=== PATIENT | female | born 1985 | race Two or more races ===

== ENCOUNTER 2018-06-27 15:17 | Inpatient (IN) | payer BC ==
[2018-06-27 15:49] LABS: ADD MAN DIFF? NO
[2018-06-27 15:55] LABS: BASOPHILS % 0.3 % (0.0-2.0); EOSINOPHILS # 0.1 10^3/ul (0.0-0.5); EOSINOPHILS % 1.3 % (0.0-7.0); HEMATOCRIT 35.9 % (37.0-47.0); HEMOGLOBIN 11.5 g/dl (12.0-16.0); LYMPHOCYTES # 1.2 10^3/ul (0.8-2.9); LYMPHOCYTES % 16.9 % (15.0-51.0); MEAN CORPUSCULAR VOLUME 90.7 fl (82.0-101.0); MONOCYTE # 0.5 10^3/ul (0.3-0.9); MONOCYTES % 6.5 % (0.0-11.0); NEUTROPHIL # 5.3 10^3/ul (1.6-7.5); NEUTROPHILS % 74.7 % (39.0-77.0); PLATELET COUNT 212 10^3/UL (140-415); RED BLOOD COUNT 3.96 10^6/ul (4.20-5.40); RED CELL DISTRIBUTION WIDTH 12.9 % (11.5-14.5)
[2018-06-27 16:13] LABS: ALANINE AMINOTRANSFERASE 23 IU/L (13-69); ALBUMIN 3.2 g/dl (3.3-4.9); ALKALINE PHOSPHATASE 139 IU/L (42-121); ANION GAP 9 (5-13); ASPARTATE AMINO TRANSFERASE 25 IU/L (15-46); BILIRUBIN,INDIRECT 0.2 mg/dl (0-1.1); BILIRUBIN,TOTAL 0.2 mg/dl (0.2-1.3); BLOOD UREA NITROGEN 9 mg/dl (7-20); CALCIUM 8.4 mg/dl (8.4-10.2); CARBON DIOXIDE 23 mmol/L (21-31); CHLORIDE 108 mmol/L (97-110); Estimated GFR > 60 mL/min (>60); GLUCOSE 125 mg/dl (70-220); POTASSIUM 3.9 mmol/L (3.5-5.1); SODIUM 140 mmol/L (135-144); TOTAL PROTEIN 6.4 g/dl (6.1-8.1); URIC ACID 4.7 mg/dl (3.1-7.9)
[2018-06-27 16:19] LABS: ADD UMIC YES; UR ASCORBIC ACID NEGATIVE (NEGATIVE); UR BACTERIA FEW /HPF (NONE SEEN); UR BILIRUBIN (Dip) NEGATIVE (NEGATIVE); UR BLOOD (Dip) NEGATIVE (NEGATIVE); UR CLARITY SLIGHTLY CLOUDY (CLEAR); UR COLOR YELLOW (YELLOW); UR GLUCOSE (Dip) NEGATIVE (NEGATIVE); UR KETONES (Dip) TRACE mg/dL (NEGATIVE); UR LEUKOCYTE ESTERASE (Dip) NEGATIVE Leu/ul (NEGATIVE); UR MUCUS FEW /HPF (NONE SEEN); UR NITRITE (Dip) NEGATIVE (NEGATIVE); UR RBC 2 /HPF (0-5); UR SPECIFIC GRAVITY (Dip) 1.025 (1.003-1.030); UR SQUAMOUS EPITHELIAL CELL MODERATE /HPF (FEW); UR TOTAL PROTEIN (Dip) 1+ mg/dl (NEGATIVE); UR UROBILINOGEN (Dip) NEGATIVE (NEGATIVE); UR WBC 3 /HPF (0-5)
[2018-06-27] MEDS: LACTATED RINGER'S 1,000 ML IV (18:26)
[2018-06-27] MEDS: MAGNESIUM SULFATE 4 GM/100 ML 100 ML IV (18:27)
[2018-06-27 18:51] LABS: MAGNESIUM 1.8 mg/dl (1.7-2.5)
[2018-06-27] MEDS: MAGNESIUM SULFATE 20 GM/500 ML 500 ML IV (18:53)
[2018-06-27] MEDS: BETAMET NA PHOS/AC(6 MG/ML) 2 ML INJ SYG IM (20:47)
[2018-06-28 01:30] LABS: MAGNESIUM 4.3 mg/dl (1.7-2.5)
[2018-06-28] MEDS: LACTATED RINGER'S 1,000 ML IV ×2 (04:58→13:03)
[2018-06-28] MEDS: MAGNESIUM SULFATE 20 GM/500 ML 500 ML IV (05:02)
[2018-06-28 06:53] LABS: MAGNESIUM 4.6 mg/dl (1.7-2.5)
[2018-06-28] MEDS ORDERED: GLUCAGON 1 MG INJ IM (08:30)
[2018-06-28] MEDS ORDERED: DEXTROSE 50% 50 ML SYRINGE IV ×2 (08:30)
[2018-06-28] MEDS ORDERED: GLUCOSE GEL 15 GRAM TUBE PO ×2 (08:30)
[2018-06-28] MEDS ORDERED: GLUCOSE GEL 15 GRAM TUBE BUCCAL (08:30)
[2018-06-28] MEDS: FERROUS SULFATE (EC) 325 MG TAB PO (08:46)
[2018-06-28] MEDS: PRENATAL VITAMIN PO (08:47)
[2018-06-28 12:47] LABS: MAGNESIUM 5.1 mg/dl (1.7-2.5)
[2018-06-28] MEDS ORDERED: ACETAMINOPHEN 325 MG TAB PO (16:30)
[2018-06-28 19:03] LABS: COLLECTION PERIOD 24 hrs
[2018-06-28 19:37] LABS: MAGNESIUM 3.1 mg/dl (1.7-2.5)
[2018-06-28 19:53] LABS: CREATININE,URINE RANDOM 37.55 mg/dl (20-320)
[2018-06-28 19:58] LABS: COLLECTION PERIOD 24 hrs; CREATININE CLEARANCE 206.4 mls/min (84.0-162.0); VOLUME 4750 ml/24hrs; VOLUME 4750 mls
[2018-06-28] MEDS: BETAMET NA PHOS/AC(6 MG/ML) 2 ML INJ SYG IM (20:34)
[2018-06-28] MEDS: metFORMIN 500 MG TAB PO (21:24)
[2018-06-29] MEDS: LACTATED RINGER'S 1,000 ML IV (01:52)
[2018-06-29] MEDS: metFORMIN 500 MG TAB PO (08:48)
[2018-06-29] MEDS: PRENATAL VITAMIN PO (09:25)
[2018-06-29] MEDS: FERROUS SULFATE (EC) 325 MG TAB PO (09:25)
== END 2018-06-29 12:52 | disposition home or self-care (01) | DRG 833 ==
LOC: OBT 15:17 → PP1 06-28 10:17 → L-D 15:19 → OBT 16:40 → L-D 16:40
DX: O13.3 Gestational [pregnancy-induced] hypertension without significant proteinuria, third trimester (principal); Z3A.29 29 weeks gestation of pregnancy
CPT/HCPCS: 76818; 80053; 81001; 82575; 82962; 83735; 84156; 84560; 85025; 87086

== ENCOUNTER 2018-07-29 12:18 | Inpatient (IN) | payer BC ==
[2018-07-29 13:17] LABS: ADD MAN DIFF? NO
[2018-07-29 13:20] LABS: WHITE BLOOD COUNT 5.6 10^3/ul (4.8-10.8)
[2018-07-29 13:20] LABS: BASOPHILS % 0.5 % (0.0-2.0); EOSINOPHILS # 0.1 10^3/ul (0.0-0.5); EOSINOPHILS % 1.4 % (0.0-7.0); HEMATOCRIT 37.9 % (37.0-47.0); HEMOGLOBIN 12.2 g/dl (12.0-16.0); LYMPHOCYTES # 1.5 10^3/ul (0.8-2.9); LYMPHOCYTES % 27.4 % (15.0-51.0); MEAN CORPUSCULAR HEMOGLOBIN 28.8 pg (29.0-33.0); MEAN CORPUSCULAR HGB CONC 32.2 g/dl (32.0-37.0); MEAN CORPUSCULAR VOLUME 89.4 fl (82.0-101.0); MEAN PLATELET VOLUME 11.1 fl (7.4-10.4); MONOCYTE # 0.5 10^3/ul (0.3-0.9); MONOCYTES % 8.1 % (0.0-11.0); NEUTROPHIL # 3.5 10^3/ul (1.6-7.5); NEUTROPHILS % 62.1 % (39.0-77.0); PLATELET COUNT 203 10^3/UL (140-415); RED BLOOD COUNT 4.24 10^6/ul (4.20-5.40); RED CELL DISTRIBUTION WIDTH 13.1 % (11.5-14.5)
[2018-07-29 13:36] LABS: ADD UMIC YES; UR ASCORBIC ACID NEGATIVE (NEGATIVE); UR BACTERIA FEW /HPF (NONE SEEN); UR BILIRUBIN (Dip) NEGATIVE (NEGATIVE); UR BLOOD (Dip) 1+ mg/dL (NEGATIVE); UR BUDDING YEAST FEW /HPF (NONE SEEN); UR CLARITY CLOUDY (CLEAR); UR COLOR YELLOW (YELLOW); UR GLUCOSE (Dip) NEGATIVE (NEGATIVE); UR KETONES (Dip) NEGATIVE (NEGATIVE); UR LEUKOCYTE ESTERASE (Dip) NEGATIVE Leu/ul (NEGATIVE); UR NITRITE (Dip) NEGATIVE (NEGATIVE); UR RBC 2 /HPF (0-5); UR SPECIFIC GRAVITY (Dip) 1.016 (1.003-1.030); UR SQUAMOUS EPITHELIAL CELL FEW /HPF (FEW); UR TOTAL PROTEIN (Dip) 3+ mg/dl (NEGATIVE); UR UROBILINOGEN (Dip) NEGATIVE (NEGATIVE); UR WBC 7 /HPF (0-5)
[2018-07-29 13:37] LABS: ALANINE AMINOTRANSFERASE 119 IU/L (13-69); ALBUMIN 2.8 g/dl (3.3-4.9); ALBUMIN/GLOBULIN RATIO 0.84; ALKALINE PHOSPHATASE 243 IU/L (42-121); ANION GAP 4 (5-13); ASPARTATE AMINO TRANSFERASE 60 IU/L (15-46); BILIRUBIN,INDIRECT 0.1 mg/dl (0-1.1); BILIRUBIN,TOTAL 0.1 mg/dl (0.2-1.3); BLOOD UREA NITROGEN 12 mg/dl (7-20); CALCIUM 8.6 mg/dl (8.4-10.2); CARBON DIOXIDE 26 mmol/L (21-31); CHLORIDE 109 mmol/L (97-110); CREATININE 0.86 mg/dl (0.44-1.00); Estimated GFR > 60 mL/min (>60); GLUCOSE 98 mg/dl (70-220); POTASSIUM 4.6 mmol/L (3.5-5.1); SODIUM 139 mmol/L (135-144); TOTAL PROTEIN 6.1 g/dl (6.1-8.1); URIC ACID 6.7 mg/dl (3.1-7.9)
[2018-07-29 13:39] LABS: INR 0.83; PROTIME 11.5 Sec (11.9-14.9); PT RATIO 0.9
[2018-07-29 13:40] LABS: PARTIAL THROMBOPLASTIN TIME 30.4 Sec (23.0-35.0)
[2018-07-29] MEDS: BETAMET NA PHOS/AC(6 MG/ML) 2 ML INJ SYG IM (18:42)
[2018-07-29] MEDS: ACCU-CHEK XX (20:49)
[2018-07-30] MEDS: ACCU-CHEK XX ×4 (08:00→20:01)
[2018-07-30 08:19] LABS: ADD MAN DIFF? NO
[2018-07-30 08:24] LABS: BASOPHILS % 0.1 % (0.0-2.0); HEMATOCRIT 39.8 % (37.0-47.0); HEMOGLOBIN 12.6 g/dl (12.0-16.0); LYMPHOCYTES # 1.1 10^3/ul (0.8-2.9); LYMPHOCYTES % 15.2 % (15.0-51.0); MEAN CORPUSCULAR HEMOGLOBIN 28.4 pg (29.0-33.0); MEAN CORPUSCULAR HGB CONC 31.7 g/dl (32.0-37.0); MEAN CORPUSCULAR VOLUME 89.6 fl (82.0-101.0); MEAN PLATELET VOLUME 11.4 fl (7.4-10.4); MONOCYTE # 0.2 10^3/ul (0.3-0.9); MONOCYTES % 3.3 % (0.0-11.0); NEUTROPHIL # 5.9 10^3/ul (1.6-7.5); NEUTROPHILS % 80.8 % (39.0-77.0); PLATELET COUNT 215 10^3/UL (140-415); RED BLOOD COUNT 4.44 10^6/ul (4.20-5.40); RED CELL DISTRIBUTION WIDTH 12.9 % (11.5-14.5)
[2018-07-30 08:24] LABS: WHITE BLOOD COUNT 7.3 10^3/ul (4.8-10.8)
[2018-07-30 08:50] LABS: ALANINE AMINOTRANSFERASE 131 IU/L (13-69); ALBUMIN 2.9 g/dl (3.3-4.9); ALBUMIN/GLOBULIN RATIO 0.93; ALKALINE PHOSPHATASE 253 IU/L (42-121); ANION GAP 10 (5-13); ASPARTATE AMINO TRANSFERASE 69 IU/L (15-46); BLOOD UREA NITROGEN 15 mg/dl (7-20); CALCIUM 8.9 mg/dl (8.4-10.2); CARBON DIOXIDE 22 mmol/L (21-31); CHLORIDE 107 mmol/L (97-110); CREATININE 0.89 mg/dl (0.44-1.00); Estimated GFR > 60 mL/min (>60); GLUCOSE 115 mg/dl (70-220); POTASSIUM 4.4 mmol/L (3.5-5.1); SODIUM 139 mmol/L (135-144)
[2018-07-30] MEDS: PRENATAL VITAMIN PO (10:28)
[2018-07-30 17:18] LABS: COLLECTION PERIOD 24 hrs
[2018-07-30] MEDS ORDERED: ACETAMINOPHEN 325 MG TAB PO (18:00)
[2018-07-30 18:24] LABS: COLLECTION PERIOD 24 hrs; SCRET 0.89 mg/dl (0.44-1.00); VOLUME 1200 ml/24hrs
[2018-07-30 18:25] LABS: CREATININE CLEARANCE 123.1 mls/min (84.0-162.0)
[2018-07-30 19:23] LABS: ADD MAN DIFF? NO
[2018-07-30 19:25] LABS: VOLUME 1200 mls
[2018-07-30 19:27] LABS: BASOPHILS % 0.1 % (0.0-2.0); HEMATOCRIT 36.2 % (37.0-47.0); HEMOGLOBIN 11.7 g/dl (12.0-16.0); LYMPHOCYTES # 1.3 10^3/ul (0.8-2.9); LYMPHOCYTES % 15.9 % (15.0-51.0); MEAN CORPUSCULAR HEMOGLOBIN 28.6 pg (29.0-33.0); MEAN CORPUSCULAR HGB CONC 32.3 g/dl (32.0-37.0); MEAN CORPUSCULAR VOLUME 88.5 fl (82.0-101.0); MEAN PLATELET VOLUME 11.3 fl (7.4-10.4); MONOCYTE # 0.5 10^3/ul (0.3-0.9); MONOCYTES % 5.6 % (0.0-11.0); NEUTROPHIL # 6.4 10^3/ul (1.6-7.5); NEUTROPHILS % 77.7 % (39.0-77.0); PLATELET COUNT 236 10^3/UL (140-415); RED BLOOD COUNT 4.09 10^6/ul (4.20-5.40); RED CELL DISTRIBUTION WIDTH 13.2 % (11.5-14.5)
[2018-07-30 19:27] LABS: WHITE BLOOD COUNT 8.2 10^3/ul (4.8-10.8)
[2018-07-30 19:42] LABS: ALANINE AMINOTRANSFERASE 182 IU/L (13-69); ALBUMIN 2.8 g/dl (3.3-4.9); ALKALINE PHOSPHATASE 250 IU/L (42-121); ANION GAP 8 (5-13); ASPARTATE AMINO TRANSFERASE 108 IU/L (15-46); BILIRUBIN,INDIRECT 0.1 mg/dl (0-1.1); BILIRUBIN,TOTAL 0.1 mg/dl (0.2-1.3); BLOOD UREA NITROGEN 17 mg/dl (7-20); CALCIUM 8.6 mg/dl (8.4-10.2); CARBON DIOXIDE 23 mmol/L (21-31); CHLORIDE 108 mmol/L (97-110); CREATININE 0.97 mg/dl (0.44-1.00); Estimated GFR > 60 mL/min (>60); GLUCOSE 131 mg/dl (70-220); POTASSIUM 4.1 mmol/L (3.5-5.1); SODIUM 139 mmol/L (135-144); TOTAL PROTEIN 5.9 g/dl (6.1-8.1)
[2018-07-30] MEDS: BETAMET NA PHOS/AC(6 MG/ML) 2 ML INJ SYG IM (19:48)
[2018-07-30] MEDS: LACTATED RINGER'S 500 ML IV (19:58)
[2018-07-30] MEDS: MAGNESIUM SULFATE 20 GM/500 ML 500 ML IV (20:00)
[2018-07-31] MEDS: MAGNESIUM SULFATE 20 GM/500 ML 500 ML IV ×2 (05:50→17:49)
[2018-07-31] MEDS ORDERED: PHENYLephrine (100 MCG/ML) 10ML SYG (07:00)
[2018-07-31] MEDS ORDERED: EPHEDrine SULFATE 50 MG/5 ML SYG (07:00)
[2018-07-31] MEDS: ACCU-CHEK XX ×2 (07:25→21:15)
[2018-07-31 07:29] LABS: MAGNESIUM 5.6 mg/dl (1.7-2.5)
[2018-07-31] MEDS: LACTATED RINGER'S 500 ML IV ×2 (07:45→08:50)
[2018-07-31] MEDS: PRENATAL VITAMIN PO (09:00)
[2018-07-31] MEDS ORDERED: CITRIC ACID/NA CITRATE 30 ML CUP (09:55)
[2018-07-31] MEDS: CITRIC ACID/NA CITRATE 30 ML CUP PO ×2 (09:56→10:00)
[2018-07-31] MEDS ORDERED: CEFAZOLIN 3 GM in DEXTROSE 5% 100 ML IV (10:00)
[2018-07-31] MEDS ORDERED: CARBOPROST 250 MCG INJ IM ×2 (10:00→15:30)
[2018-07-31] MEDS ORDERED: OXYTOCIN 30 UNITS/LR 500 ML IV ×3 (10:00→15:30)
[2018-07-31] MEDS ORDERED: MISOPROSTOL 200 MCG TAB PR ×2 (10:00→15:30)
[2018-07-31] MEDS ORDERED: METHYLERGONOVINE 0.2 MG INJ IM ×2 (10:00→15:30)
[2018-07-31] MEDS ORDERED: ONDANSETRON 4 MG INJ (10:05)
[2018-07-31] MEDS ORDERED: METOCLOPRAMIDE 10 MG INJ (10:05)
[2018-07-31] MEDS ORDERED: morphine SULFATE/PF (10 MG/10 ML) INJ (10:05)
[2018-07-31] MEDS ORDERED: BUPIVACAINE 0.75%/DEXT (SPINAL) 2 ML INJ (10:06)
[2018-07-31] MEDS: OXYTOCIN 30 UNITS/LR 500 ML IVPB (11:46)
[2018-07-31] MEDS ORDERED: morphine (1 MG/ML) 10ML SYRINGE IV ×3 (12:00)
[2018-07-31] MEDS ORDERED: KETOROLAC 30 MG INJ IV (12:00)
[2018-07-31] MEDS ORDERED: ONDANSETRON 4 MG INJ IV ×2 (12:00→12:30)
[2018-07-31] MEDS ORDERED: DIPHENHYDRAMINE 50 MG INJ IV ×2 (12:00→12:30)
[2018-07-31] MEDS: OXYTOCIN 30 UNITS/LR 500 ML IV ×4 (12:08→23:12)
[2018-07-31] MEDS ORDERED: NALOXONE (0.4 MG/ML) INJ IV (12:30)
[2018-07-31] MEDS ORDERED: morphine 2 MG INJ IV ×3 (12:30)
[2018-07-31 13:02] LABS: MAGNESIUM 5.6 mg/dl (1.7-2.5)
[2018-07-31] MEDS ORDERED: HYDROCODONE/APAP (5/325) TAB PO ×2 (15:30)
[2018-07-31] MEDS: LANOLIN HPA 1 PKT TOP (17:38)
[2018-07-31] MEDS: CEFAZOLIN 1 GM/50 ML (PMX) 50 ML IVPB (18:30)
[2018-07-31 19:04] LABS: MAGNESIUM 6.5 mg/dl (1.7-2.5)
[2018-08-01] MEDS: ALBUTEROL HFA 8 GM INHALER INH ×2 (00:20→08:24)
[2018-08-01 01:46] LABS: MAGNESIUM 5.9 mg/dl (1.7-2.5)
[2018-08-01] MEDS: OXYTOCIN 30 UNITS/LR 500 ML IV ×6 (04:07→23:12)
[2018-08-01 07:17] LABS: ADD MAN DIFF? NO
[2018-08-01 07:24] LABS: BASOPHILS % 0.2 % (0.0-2.0); HEMATOCRIT 34.8 % (37.0-47.0); HEMOGLOBIN 11.4 g/dl (12.0-16.0); LYMPHOCYTES # 1.7 10^3/ul (0.8-2.9); LYMPHOCYTES % 17.2 % (15.0-51.0); MEAN CORPUSCULAR HGB CONC 32.8 g/dl (32.0-37.0); MEAN CORPUSCULAR VOLUME 88.5 fl (82.0-101.0); MEAN PLATELET VOLUME 10.8 fl (7.4-10.4); MONOCYTE # 0.7 10^3/ul (0.3-0.9); MONOCYTES % 7.3 % (0.0-11.0); NEUTROPHIL # 7.4 10^3/ul (1.6-7.5); NEUTROPHILS % 74.8 % (39.0-77.0); PLATELET COUNT 210 10^3/UL (140-415); RED BLOOD COUNT 3.93 10^6/ul (4.20-5.40); RED CELL DISTRIBUTION WIDTH 13.3 % (11.5-14.5)
[2018-08-01 07:47] LABS: ALANINE AMINOTRANSFERASE 335 IU/L (13-69); ALBUMIN 2.6 g/dl (3.3-4.9); ALBUMIN/GLOBULIN RATIO 0.86; ALKALINE PHOSPHATASE 212 IU/L (42-121); ANION GAP 3 (5-13); ASPARTATE AMINO TRANSFERASE 204 IU/L (15-46); BLOOD UREA NITROGEN 17 mg/dl (7-20); CARBON DIOXIDE 31 mmol/L (21-31); CHLORIDE 100 mmol/L (97-110); CREATININE 0.92 mg/dl (0.44-1.00); Estimated GFR > 60 mL/min (>60); GLUCOSE 100 mg/dl (70-220); POTASSIUM 4.2 mmol/L (3.5-5.1); SODIUM 134 mmol/L (135-144); TOTAL PROTEIN 5.6 g/dl (6.1-8.1)
[2018-08-01 08:10] LABS: MAGNESIUM 5.1 mg/dl (1.7-2.5)
[2018-08-01] MEDS: SENNA/DOCUSATE NA (8.6MG/50MG) TAB PO ×2 (08:22→20:22)
[2018-08-01] MEDS: KETOROLAC 30 MG INJ IV (08:22)
[2018-08-01] MEDS: MAGNESIUM SULFATE 20 GM/500 ML 500 ML IV (08:41)
[2018-08-01] MEDS: OXYCODONE/ACETAMINOPHEN (5/325) TAB PO ×3 (12:01→20:22)
[2018-08-01] MEDS: IBUPROFEN 600 MG TAB PO (17:44)
[2018-08-02] MEDS: IBUPROFEN 600 MG TAB PO ×4 (00:31→19:06)
[2018-08-02] MEDS: OXYTOCIN 30 UNITS/LR 500 ML IV ×6 (03:12→23:12)
[2018-08-02] MEDS: MAGNESIUM SULFATE 20 GM/500 ML 500 ML IV (04:35)
[2018-08-02 06:20] LABS: ADD MAN DIFF? NO
[2018-08-02 06:25] LABS: BASOPHILS % 0.5 % (0.0-2.0); EOSINOPHILS # 0.1 10^3/ul (0.0-0.5); EOSINOPHILS % 0.6 % (0.0-7.0); HEMATOCRIT 37.1 % (37.0-47.0); LYMPHOCYTES % 25.8 % (15.0-51.0); MEAN CORPUSCULAR HEMOGLOBIN 28.8 pg (29.0-33.0); MEAN CORPUSCULAR HGB CONC 32.3 g/dl (32.0-37.0); MEAN PLATELET VOLUME 10.1 fl (7.4-10.4); MONOCYTE # 0.7 10^3/ul (0.3-0.9); MONOCYTES % 9.1 % (0.0-11.0); NEUTROPHILS % 63.6 % (39.0-77.0); PLATELET COUNT 242 10^3/UL (140-415); RED BLOOD COUNT 4.17 10^6/ul (4.20-5.40); RED CELL DISTRIBUTION WIDTH 13.6 % (11.5-14.5)
[2018-08-02 06:25] LABS: WHITE BLOOD COUNT 7.9 10^3/ul (4.8-10.8)
[2018-08-02 07:07] LABS: ALANINE AMINOTRANSFERASE 283 IU/L (13-69); ALBUMIN 2.6 g/dl (3.3-4.9); ALBUMIN/GLOBULIN RATIO 0.92; ALKALINE PHOSPHATASE 213 IU/L (42-121); ANION GAP 4 (5-13); ASPARTATE AMINO TRANSFERASE 141 IU/L (15-46); BLOOD UREA NITROGEN 17 mg/dl (7-20); CALCIUM 8.3 mg/dl (8.4-10.2); CARBON DIOXIDE 31 mmol/L (21-31); CHLORIDE 104 mmol/L (97-110); CREATININE 0.87 mg/dl (0.44-1.00); Estimated GFR > 60 mL/min (>60); GLUCOSE 91 mg/dl (70-220); POTASSIUM 4.6 mmol/L (3.5-5.1); SODIUM 139 mmol/L (135-144); TOTAL PROTEIN 5.4 g/dl (6.1-8.1)
[2018-08-02 07:08] LABS: MAGNESIUM 2.5 mg/dl (1.7-2.5)
[2018-08-02] MEDS: ACCU-CHEK XX ×4 (07:30→20:05)
[2018-08-02] MEDS: SENNA/DOCUSATE NA (8.6MG/50MG) TAB PO ×2 (11:30→21:12)
[2018-08-02] MEDS: OXYCODONE/ACETAMINOPHEN (5/325) TAB PO (14:28)
[2018-08-02] MEDS: NA PHOSPHATE/BIPHOS 133 ML ENEMA PR (14:29)
[2018-08-03] MEDS: MAGNESIUM SULFATE 20 GM/500 ML 500 ML IV (00:41)
[2018-08-03] MEDS: IBUPROFEN 600 MG TAB PO ×3 (00:44→12:52)
[2018-08-03] MEDS: OXYCODONE/ACETAMINOPHEN (5/325) TAB PO (01:40)
[2018-08-03] MEDS: OXYTOCIN 30 UNITS/LR 500 ML IV (03:12)
[2018-08-03] MEDS: ACCU-CHEK XX ×2 (07:30→10:05)
[2018-08-03] MEDS: DIPHTH/TET/ACEL PERTUSS (ADULT) 0.5 ML VIAL IM* (09:00)
[2018-08-03] MEDS: SENNA/DOCUSATE NA (8.6MG/50MG) TAB PO (10:05)
[2018-08-03 10:54] LABS: ALANINE AMINOTRANSFERASE 190 IU/L (13-69); ALBUMIN 2.8 g/dl (3.3-4.9); ALBUMIN/GLOBULIN RATIO 0.93; ALKALINE PHOSPHATASE 189 IU/L (42-121); ANION GAP 6 (5-13); ASPARTATE AMINO TRANSFERASE 85 IU/L (15-46); BLOOD UREA NITROGEN 16 mg/dl (7-20); CALCIUM 8.5 mg/dl (8.4-10.2); CARBON DIOXIDE 28 mmol/L (21-31); CHLORIDE 105 mmol/L (97-110); CREATININE 0.83 mg/dl (0.44-1.00); Estimated GFR > 60 mL/min (>60); GLUCOSE 105 mg/dl (70-220); POTASSIUM 4.1 mmol/L (3.5-5.1); SODIUM 139 mmol/L (135-144); TOTAL PROTEIN 5.8 g/dl (6.1-8.1)
[2018-08-03 15:10] LABS: RAPID PLASMA REAGIN NONREACTIVE (NR)
== END 2018-08-03 13:25 | disposition home or self-care (01) | DRG 788 ==
LOC: OBT 12:18 → L-D 07-30 21:50 → PP1 07-31 15:09 → OBT 14:30 → L-D 07-30 22:22 → PP1 15:30
PROC: 10D00Z1 Extraction of Products of Conception, Low, Open Approach (ICD-10-PCS; principal; 2018-07-31 11:00)
DX: O14.14 Severe pre-eclampsia complicating childbirth (principal); O34.211 Maternal care for low transverse scar from previous cesarean delivery; O99.214 Obesity complicating childbirth; E66.01 Morbid (severe) obesity due to excess calories; Z37.0 Single live birth; Z3A.34 34 weeks gestation of pregnancy
CPT/HCPCS: 36415; 76818; 80053; 81001; 82575; 82962; 83735; 84156; 84560; 85025; 85384; 85610; 85730; 86592; 86850; 86900; 86901; 88307; 99464